=== PATIENT | male | born 1985 | race Hispanic/Latino ===

== ENCOUNTER 2022-02-21 20:30 | Emergency (ER) | payer OTHER, SELFPAY ==
[2022-02-21 21:10] VITALS: PULSE 77; RESP 18; TEMP 37.7; O2SAT 95; BMI 25.8
[2022-02-21 21:42] LABS: COVID19 -Nasal RAPID Negative (Negative)
[2022-02-22] VITALS (8 sets, daily range): BP systolic 111–132; BP diastolic 62–84; PULSE 76–84; RESP 16–18; TEMP 37.2; O2SAT 92–100
[2022-02-22] MEDS: IBUPROFEN 400 MG TABLET 800 MG PO (00:45)
--- NOTE | 2022-02-22 00:56 | ED.GENADULT ---
HPI - General Adult General Chief complaint: Fever Stated complaint: Fever 89F with tylenol, chills, head ache, sweats Time Seen by Provider: 02/22/22 00:46 Source: patient and family Mode of arrival: Ambulatory History of Present Illness HPI narrative: Patient is an otherwise healthy 36-year-old male who is here for evaluation approximately 1 week of fevers and chills and headache and sweats. He has been taking Tylenol at home which improves this fever however returns after the medication wears off. He denies any neck pain. He currently does not have any headache. He states the headache comes on when he has the fevers. He denies any sore throat. No congestion. No chest pain. No cough. No shortness of breath. No abdominal pain. No vomiting. No diarrhea. No skin changes or rashes. He states that just today he started noticing some enlarged lymph nodes in his left armpit. No known sick contacts. Related Data Allergies Allergy/AdvReac Type Severity Reaction Status Date / Time No Known Drug Allergies Allergy Verified 02/22/22 00:48 Review of Systems Review of Systems ROS Unobtainable: All systems reviewed & are unremarkable except as noted in HPI and below Patient History Medical History Healthy adult Social History Smoking Status: Never smoker Smoking Status: Never smoker alcohol intake frequency: holidays/special occasions only Substance Use Type: does not use Exam Initial Vital Signs Initial Vital Signs: Vital Signs Temperature 100 F H 02/21/22 21:10 Pulse Rate 77 02/21/22 21:10 Respiratory Rate 18 02/21/22 21:10 Pulse Oximetry 95 02/21/22 21:10 Const General: cooperative, comfortable, well developed and well groomed HENNC Head: normal to inspection and normocephalic Ears: TM normal on the left and TM abnormal bulging on the right Face and sinus: normal facial exam Mouth: oral mucosae normal Chest Chest: normal inspection of the chest Resp Effort & Inspection: normal respiratory effort Auscultation: clear to auscultation bilaterally Cardio Rate: regular rate Rhythm: regular rhythm GI Inspection: normal to inspection Palpation: soft and No tender Skin General: no rashes or lesions noted Neuro General: patient alert, patient awake, patient oriented x3 and moves all extremities Extrem General: normal to inspection and capillary refill normal Other: Enlarged lymph nodes left axilla Psych Appearance: grossly normal and well kempt Course Orders Ordered: ED Orders 02/21/22 21:15 COVID19 -Nasal RAPID/Pre-Proc Stat 02/22/22 01:00 Respiratory Panel (Film Array) Stat Discontinued Medications Ibuprofen (Ibuprofen 400 Mg Tablet) 800 mg PO NOW ONE Stop: 02/22/22 00:31 Last Admin: 02/22/22 00:45 Dose: 800 mg Documented by: BEVERLEY Vital Signs Vital signs: Vital Signs - 8 hr 02/21/22 21:10 02/22/22 00:27 02/22/22 00:28 Temperature 100 F H Pulse Rate 77 76 Respiratory Rate 18 Blood Pressure 132/84 Pulse Oximetry 95 92 100 02/22/22 00:30 02/22/22 00:46 02/22/22 01:00 Temperature 99.0 F Pulse Rate 78 79 Respiratory Rate Blood Pressure Pulse Oximetry 100 98 02/22/22 01:30 02/22/22 02:00 02/22/22 02:22 Temperature Pulse Rate 82 84 77 Respiratory Rate 18 16 Blood Pressure 111/62 Pulse Oximetry 96 96 Medical Decision Making Lab Data Labs: Lab Results 02/21/22 02/22/22 Range/Units 21:15 01:00 Chlamy pneumoniae PCR Not detected (Not Detect) Adenovirus (PCR) Not detected (Not Detect) B. pertussis DNA (PCR) Not detected (Not Detecte) B.parapertussis DNA PCR Not detected (Not Detecte) Coronavirus OC43 (PCR) Not detected (Not Detect) Coronavirus HKU1 (PCR) Not detected (Not Detect) Coronavirus 229E (PCR) Not detected (Not Detect) SARS-CoV-2 (PCR) Negative Not detected (Negative) Coronavirus NL63 (PCR) Not detected (Not Detect) Human Metapneumovir PCR Not detected (Not Detect) Influenza Type A (PCR) Not detected (Not Detect) Influenza Type B (PCR) Not detected (Not Detect) M. pneumoniae (PCR) Not detected (Not Detect) Parainfluenza 1 (PCR) Not detected (Not Detect) Parainfluenza 2 (PCR) Not detected (Not Detect) Parainfluenza 3 (PCR) Not detected (Not Detect) Parainfluenza 4 (PCR) Not detected (Not Detect) RSV (PCR) Not detected (Not Detect) Entero/Rhino (PCR) Not detected (Not Detect) MDM Narrative Medical decision making narrative: COVID is negative. Respiratory panel was negative. Patient does have a bulging right tympanic membrane however the rest of his urine throat exam is unremarkable. Low suspicion for meningitis. Low suspicion for strep throat. Low suspicion for pneumonia given the fact he has no cough and no shortness of breath and a clear lung exam. Low suspicion for any acute intra-abdominal pathologies he has no abdominal discomfort and has no diarrhea. He has no skin changes concerning for cellulitis. He does have isolated lymphadenopathy in his left axilla however the left arm and left chest and left shoulder left back show no signs of any infections. Unsure the exact etiology of the patient's fever however currently there is no indication to start any antibiotics. Patient is nontoxic appearing. Is well hydrated. Not tachycardic. Not hypoxic. Not tachypneic. Not hypotensive. Feel that we can hold on further workup for now and wait to see if a specific etiology becomes evident over the next several days. Patient was given strict return precautions. Did discuss the use of Tylenol and ibuprofen. He expressed understanding and agreement. Discharge Plan Departure Patient Disposition: Home Clinical Impression: Fever, Lymphadenopathy Instructions: DI for Fever (Symptom) -- Adult Activity Restrictions/Additional Instructions: Recommend that you continue to increase your fluid intake. You can take Tylenol and ibuprofen for any fevers. Contact your primary doctor for a follow-up. Return to the emergency department for any new or worsening symptoms like we discussed.
[2022-02-22 01:54] LABS: Adenovirus Not Detected (Not Detect); B. parapertussis Not Detected (Not Detecte); Bordetella pertussis Not Detected (Not Detecte); Chlamydophila pneumoniae Not Detected (Not Detect); Coronavirus 229E Not Detected (Not Detect); Coronavirus HKU1 Not Detected (Not Detect); Coronavirus NL 63 Not Detected (Not Detect); Coronavirus OC43 Not Detected (Not Detect); Human Metapneumovirus Not Detected (Not Detect); Human Rhinovirus/Enterovirus Not Detected (Not Detect); Influenza A Not Detected (Not Detect); Influenza B Not Detected (Not Detect); Mycoplasma pneumoniae Not Detected (Not Detect); Parainfluenza Virus 1 Not Detected (Not Detect); Parainfluenza Virus 2 Not Detected (Not Detect); Parainfluenza Virus 3 Not Detected (Not Detect); Parainfluenza Virus 4 Not Detected (Not Detect); Respiratory Syncytial Virus Not Detected (Not Detect); SARS- CoV-2 Not Detected (Not Detecte)
== END 2022-02-22 02:25 | disposition home or self-care (01) ==
PROVIDERS: Emergency Provider Emergency Medicine
DX: R50.9 Fever, unspecified (principal); R51.9 Headache, unspecified; R59.0 Localized enlarged lymph nodes; Z20.822 Contact with and (suspected) exposure to COVID-19
CPT/HCPCS: 87633; 87635; 99283; C9803